=== PATIENT | female | born 1955 | race American Indian/Alaskan Native ===

== ENCOUNTER → 2018-01-18 | Day surgery (SDC) | payer OTHER ==
--- NOTE | 2018-01-24 11:49 | PATH ---
Surgical Pathology Report Patient Name: MANUELA STOUT [facility]. Rec. #: [id number] /Age/Gender: 1955 (Age: 62) / F Account: [id number] Location: [facility] Taken: 01/18/2018 Received: 01/18/2018 Reported: 01/23/2018 Physicians: Talya Coburn M.D. Specimen(s) Received RIGHT BREAST CORE BIOPSY Clinical History Ultrasound findings: Highly suspicious/malignant Final Diagnosis BREAST, RIGHT, 7:00, 4 CM FN, CORE BIOPSY: INVASIVE DUCTAL CARCINOMA, WELL TO MODERATELY DIFFERENTIATED, MEASURING ATLEAST 2 MM IN THIS MATERIAL. Comment: Immunohistochemical stains performed and interpreted at [facility] show myoepithelial markers: p63 and Smooth muscle myosin- heavy chain (SMM-HC), are negative. E-Cadherin is positive, supportive of ductal phenotype. Results of Estrogen Receptor (ER) and Progesterone Receptor (TN) studies performed at [facility] are as follows: ER (clone [id number] mouse monoclonal antibody by [employer]): 90% nuclear staining with strong intensity (Positive). TN (clone16 mouse monoclonal antibody by [employer]ica): 60% nuclear staining with moderate intensity (Positive). Positive and negative controls (internal if applicable) show appropriate results. Formalin fixation and cold ischemic times are within current ASCO/CAP recommendations for ER, TN and Her2 testing. Comment: Results of Her2 (IHC) & Ki-67 studies are pending and will be reported separately. Findings discussed with Oriana (nurse) from Dr. Haines's office. Electronically Signed Leesa Gleason M.D. Addendum Reported: 01/25/2018 Addendum Diagnosis Results of Her2 (IHC) & Ki-67 studies performed on block "A" at [place], [place] ([id number]) are as follows: Her2 IHC (EP3 from [employer], formerly known as [id number], using Pedro Polymer Refine detection kit): 0 (Negative). Ki-67: 5% (Low proliferative index). Positive and negative controls (internal if applicable) show appropriate results. Leesa Laureana [place]-Quoc M.D. Gross Description Received in formalin labeled "right breast biopsy 7:00, 4 cmfn," is a 2.0 x 2.0 x 0.3 cm aggregate of vásquez-yellow, irregular to cylindrical portions of fibroadipose tissue admixed with blood clot. The formalin is filtered and the specimen is entirely submitted in one cassette. Time to formalin fixation: 2 minutes Total formalin fixation time: Approximately 6 hours. 01/18/2018 trey01/18/2018
== END | disposition home or self-care (01) ==
LOC: FRADUS-SUR 11:50
PROVIDERS: ATTEND Obstetrics & Gynecology
PROC: 0HBT3ZX Excision of Right Breast, Percutaneous Approach, Diagnostic (ICD-10-PCS; principal; 2018-01-18)
DX: C50.511 Malignant neoplasm of lower-outer quadrant of right female breast (principal); Z17.0 Estrogen receptor positive status [ER+]; N63.13 Unspecified lump in the right breast, lower outer quadrant
CPT/HCPCS: 19083; 77065-TC; 87899; 88305-TC; 88341-TC; 88342-TC; A4648

== ENCOUNTER 2018-02-26 07:46 | Day surgery (SDC) | payer OTHER ==
[2018-02-11 14:54] VITALS: BMI 37.0
--- NOTE | 2018-02-18 10:20 | HP ---
Admitting History and Physical - Primary Care Physician PCP: Cat Pratt - Admission Chief Complaint: right breast cancer History of Present Illness: Patient is a 62 yo female noted to have a suspicious right breast mass at 7:30 on US. Right US guided core bx was c/w an infiltrating ductal ca ER and AL positive, Her2 negative. MRI done 02/01/2018 was c/w known cancer without evidence of multifocal or contralateral dz. A non suspicious left intramammary LN was noted on MRI which was also noted on US. Patient is now presenting for right breast WE with NL, snbx, lympho, and intraop radiation. History Source: Patient Limitations to Obtaining History: No Limitations - Past Medical History Cardiovascular: Yes: HTN Endocrine: Yes: Other (h/o thyroiditis) - Smoking History Smoking history: Never smoked Have you smoked in the past 12 months: No - Alcohol/Substance Use Hx Alcohol Use: Yes (rare) Home Medications - Allergies Allergies/Adverse Reactions: Allergies Allergy/AdvReac Type Severity Reaction Status Date / Time ramipril [From Altace] AdvReac Cough Verified 02/11/18 15:01 - Home Medications Home Medications: Ambulatory Orders Levothyroxine [Synthroid -] 100 mcg PO DAILY 02/11/18 Losartan Potassium 50 mg PO DAILY 02/11/18 Family Disease History - Family Disease History Family History: Unremarkable Review of Systems - Review of Systems Constitutional: reports: No Symptoms Cardiovascular: reports: No Symptoms Respiratory: reports: No Symptoms Physical Examination Constitutional: Yes: Well Nourished, Calm Breast(s): Yes: Other (Breast are symmetrical and nodular without suspicious masses or adenopathy noted.) Problem List - Problems (1) Breast cancer, right Code(s): C50.911 - MALIGNANT NEOPLASM OF UNSP SITE OF RIGHT FEMALE BREAST Qualifiers: Breast location: lower outer quadrant of breast Estrogen receptor status: positive Patient sex: female Qualified Code(s): C50.511 - Malignant neoplasm of lower-outer quadrant of right female breast; Z17.0 - Estrogen receptor positive status [ER+] Assessment/Plan Plan: Right breast wide excision with NL, snbx, lympho, poss ANDx, with intraop radiation.
[2018-02-26] MEDS ORDERED: PROPOFOL 20 ML ONE (12:41)
[2018-02-26] MEDS ORDERED: ROCURONIUM BROMIDE 50 MG/5 ML VIAL ONE (12:41)
[2018-02-26] MEDS ORDERED: fentaNYL CITRATE 250 MCG/5 ML VIAL ONE (12:41)
[2018-02-26] MEDS ORDERED: MIDAZOLAM HCL 2 MG/2 ML SINGLE DOSE VIAL ONE (12:41)
[2018-02-26] MEDS ORDERED: LIDOCAINE HCL 1%, 10 MG/ML (20ML VIAL) ONE (13:01)
[2018-02-26] MEDS ORDERED: ISOSULFAN BLUE 10 MG/ML VIAL SQ ONE (13:01)
[2018-02-26] MEDS ORDERED: BUPIVACAINE HCL/PF 2.5 MG/ML - 30 ML VIAL IJ ONE (13:01)
[2018-02-26] MEDS ORDERED: ONDANSETRON 4 MG/2 ML VIAL ONE ×3 (14:15→17:19)
[2018-02-26] MEDS ORDERED: DEXAMETHASONE SOD PHOSPHATE 4 MG/1 ML VIAL ONE (14:15)
[2018-02-26] MEDS ORDERED: ceFAZolin SODIUM 1 GM VIAL ONE (14:18)
[2018-02-26] MEDS ORDERED: KETOROLAC TROMETHAMINE 30 MG/1 ML VIAL IVPUSH PRN (15:11)
[2018-02-26] MEDS ORDERED: ONDANSETRON 4 MG/2 ML VIAL IVPUSH PRN ×2 (15:11→17:06)
[2018-02-26] MEDS ORDERED: DEXTROSE 5%-0.45% SALINE 1,000 ML IV SCH (15:15)
[2018-02-26] MEDS ORDERED: NEOSTIGMINE METHYLSULFATE 0.5 MG/ML - 10 ML MDV ONE (15:57)
[2018-02-26] MEDS ORDERED: GLYCOPYRROLATE 0.2 MG/1 ML VIAL ONE ×2 (16:01→16:04)
[2018-02-26] MEDS ORDERED: GUM MASTIC/STORAX/MSAL/ALCOHOL 1 DRP DROPSBTL MC ONE (16:11)
[2018-02-26] MEDS ORDERED: BUPIVACAINE HCL/PF 0.25% (2.5MG/ML) 10 ML VIAL IJ ONE (16:35)
[2018-02-26] MEDS ORDERED: oxyCODONE HCL 5 MG TABLET PO PRN (17:06)
[2018-02-26] MEDS ORDERED: LACTATED RINGERS SOLUTION 1,000 ML IV SCH (17:15)
[2018-02-26] MEDS ORDERED: ONDANSETRON 4 MG/2 ML VIAL IVPUSH ONE (17:22)
[2018-02-26] MEDS ORDERED: KETOROLAC TROMETHAMINE 30 MG/1 ML VIAL ONE (17:45)
[2018-02-26] MEDS ORDERED: KETOROLAC TROMETHAMINE 30 MG/1 ML VIAL IVPUSH ONE (17:50)
--- NOTE | 2018-02-26 17:58 | OP ---
DATE OF OPERATION: 02/26/2018 PREOPERATIVE DIAGNOSIS: Right breast cancer. POSTOPERATIVE DIAGNOSIS: Right breast cancer. PROCEDURE: Right breast ultrasound-localized wide excision with sentinel node biopsy, complex tissue transfer, and intraoperative radiation. ANESTHESIA: General intubated. ATTENDING SURGEON: Cat Pratt MD [employer] RENTAL CLERK: ABDELRAHMAN Wade ESTIMATED BLOOD LOSS: Minimal. COMPLICATIONS: None. DESCRIPTION OF PROCEDURE: Patient was made aware of the risks and benefits of the procedure and consented. She was placed in a supine position after going to radiology where under ultrasound guidance a wire was placed next to the index lesion. Next, she went to nuclear medicine where a radioactive tracer was injected into her peritumoral breast. She was placed in a supine position, and after general anesthesia was induced, the patient was intubated. Next, 3.0 mL of 1% isosulfan blue were locally infiltrated into the right breast. The operative site was then prepped and draped in usual sterile fashion, waiting approximately 10 minutes with gentle manual compression. A curvilinear incision was made in the right axilla. Using blunt and sharp dissection, tissues were dissected down to the axillary fat where 3 blue and hot lymph nodes were identified. These were surgically excised and submitted for permanent sectioning. Palpation of the rest of the axilla revealed no suspicious nodes or hot spots. The wound was then closed with deep 3-0 Vicryl, followed by a running subcuticular 4-0 Monocryl. The breast was then approached. A curvilinear incision was made next to the wire using electrocautery. Thick skin flaps were made, and the needle was withdrawn to the puncture site and wire to the wound. Tissues around the wire were then sharply excised and submitted with a short suture superior, long suture lateral. Specimen radiograph confirmed the presence of the index lesion. Additional segments were taken superior, inferior, medial, lateral, deep, and anterior with clips at the new margin. The wound was copiously irrigated with normal saline. Hemostasis maintained by electrocautery. A 4.5-cm probe was then placed into the cavity, and the was cinched to the probe with a pursestring suture of number 1 Vicryl. Intraoperative ultrasound showed the distances from the skin to the probe were greater than 1 cm. Using saline-soaked gauze, surrounding the probe neck, the skin was protected. Towels and radiopaque material were then placed over the breast, and the patient then underwent 37 minutes of intraoperative radiotherapy. Thereafter, the probe and suture were removed. Using electrocautery, tissue flaps were made by taking the breast tissue off the pectoralis muscle 6-8 cm in each direction and rotating into the cavity. This was then closed with multiple layers of [id number] suture of 2-0 Vicryl. Skin was then closed with deep 3-0 Vicryl, followed by a running subcuticular 4-0 Monocryl. Steri-Strips, sterile bandage, and a compression bra were then applied, and the patient, having tolerated the procedure well, was transferred to the recovery room in excellent condition. Talya [id number]
[2018-02-26 19:15] VITALS: TEMP 97.9
[2018-02-26 19:17] VITALS: BP 144/76; PULSE 78
--- NOTE | 2018-02-26 21:44 | OP ---
DATE OF OPERATION: 02/26/2018 PREOPERATIVE DIAGNOSIS: Right breast cancer. POSTOPERATIVE DIAGNOSIS: Right breast cancer. PROCEDURE: Post lumpectomy intraoperative radiation therapy for right breast cancer. ATTENDING SURGEON: Cat Pratt MD CAP SIZER/RADIATION ONCOLOGY: Madalyn Pizarro MD ANESTHESIA: General. COMPLICATIONS: None. INDICATIONS: The patient is a 62-year-old woman with a clinical stage 1A invasive ductal carcinoma of the right breast who elected breast conservation therapy and agreed to have intraoperative radiation therapy on the TARGET-US study. PROCEDURE: Dr. Cat Pratt performed a right lumpectomy and sentinel lymph node biopsy, which he has dictated. After excision of additional margins, the lumpectomy cavity was prepared and sized with a 4.5-cm diameter spherical applicator that was placed into the lumpectomy cavity. The surrounding breast tissue was cinched around the applicator with a Vicryl pursestring suture. I performed a clinical and ultrasound simulation to ensure that the applicator was located within the operative bed with close apposition of the surrounding breast tissue to the surface of the applicator. Ultrasound measurements confirmed a minimum distance of 1.5 cm between the applicator and skin. An adequate distance was ensured by placement of saline-soaked gauze between the skin and breast tissue and retracting the applicator off the chest wall. Shielding material was placed over the breast to reduce scattered radiation. The patient received a total dose of 20 Gy prescribed to 0 mm from the applicator surface using 50 Kv x-rays from the INTRABEAM system. Prior to treatment, the system was double by our physicist using appropriate quality control clerk measures. The total time required for the treatment was 37 minutes 6 seconds at a dose rate of 0.541 Gy per minute. When the treatment was completed, survey of the patient and room confirmed that the INTRABEAM source was off. There were no complications or unplanned interruptions. Dr. Pratt's team removed the radiation applicator from the patient and completed the surgery. DISPOSITION: The patient will be discharged to the recovery room following surgery. MADALYN PIZARRO M.D. [id number] cc: Cat Pratt MD [facility]
--- NOTE | 2018-03-04 12:47 | PATH ---
Surgical Pathology Report Patient Name: MANUELA STOUT [facility]. Rec. #: [id number] /Age/Gender: 1955 (Age: 62) / F Account: [id number] Location: [facility] Taken: 02/26/2018 Received: 02/26/2018 Reported: 03/04/2018 Physicians: Cat Pratt M.D. Specimen(s) Received A: RIGHT AXILLARY SENTINEL NODES B: RIGHT BREAST INFERIOR MARGIN C: RIGHT BREAST POSTERIOR MARGIN D: RIGHT BREAST ANTERIOR MARGIN E: RIGHT BREAST MEDIAL MARGIN F: RIGHT BREAST LATERAL MARGIN G: RIGHT BREAST SUPERIOR MARGIN H: RIGHT BREAST WIDE EXCISION Clinical History Invasive Ca Final Diagnosis A. lymph nodes, right axillary sentinel, excision: Three lymph nodes, negative for metastatic carcinoma (0/3). B. breast, right, inferior margin, excision: Benign breast tissue. C. breast, right, posterior margin, excision: Benign breast tissue. D. breast, right, anterior margin, excision: Benign breast tissue. E. breast, right, medial margin, excision: Benign breast tissue showing proliferative fibrocystic changes including usual ductal hyperplasia (UDH). F. breast, right, lateral margin, excision: Benign breast tissue showing small fibroadenoma. G. breast, right, superior margin, excision: Benign breast tissue. H. breast, right, wide excision: Invasive tubulolobular carcinoma, well differentiated (tubule score: 2/3, nuclear grade: 2/3, mitotic score: 1/3, total score: 5/9; Venus grade 1). (See note) Invasive carcinoma measures 1.7 cm in GREATEST dimension, microscopically. Ductal carcinoma in situ (DCIS), micropapillary and flat type, intermediate nuclear grade, present admixed with invasive carcinoma. Invasive carcinoma is close to (< 1 mm) the anterior margin. see specimens B-G FOR final margins. no lymphovascular invasion is identified. Remaining breast tissue shows Lobular carcinoma in situ (LCIS, classical type), flat, epithelial atypia (fea) and fibrocystic changes. (See note). Prior biopsy site changes are present. Pathologic stage (pTNM): pT1c pN0. see ALSO invasive carcinoma Case summary below. Note: E-Cadherin immunostains (performed at [facility]) demonstrate membranous positivity in both tubular and lobular appearing components, consistent with ductal phenotype. The foci of LCIS are negative for E-Cadherin. These findings support the diagnosis. Comments Breast Invasive Carcinoma: Surgical Pathology Case Summary (Based on AJCC TNM 8 th edition) Procedure _X_ Excision (less than total mastectomy) Specimen Laterality _X_ Right Tumor Size _X_ Greatest dimension of largest invasive focus >1 mm (millimeters): 17 mm Histologic Type _X_ Invasive tubulolobular carcinoma Histologic Grade (Venus Histologic Score) Glandular (Acinar)/Tubular Differentiation _X_ Score 2 (10% to 75% of tumor area forming glandular/tubular structures) Nuclear Pleomorphism _X_ Score 2 Mitotic Rate _X_ Score 1 Overall Grade _X_ Grade 1 (scores of 3, 4, or 5) Tumor Focality _X_ Single focus of invasive carcinoma Ductal Carcinoma In Situ (DCIS) _X_ DCIS is present in specimen _X_ Negative for extensive intraductal component (EIC) Margins Invasive Carcinoma Margins _X_ Uninvolved by invasive carcinoma Distance from closest margin (millimeters): > 1 mm from anterior margin in wide excision H. Final anterior margin is negative for carcinoma. DCIS Margins _X_ Uninvolved by DCIS Distance from closest margin (millimeters): 7 mm from anterior margin in wide excision H. Final anterior margin is negative for DCIS. Regional Lymph Nodes Number of Lymph Nodes with Macrometastases (>2 mm): 0 Number of Lymph Nodes with Micrometastases (>0.2 mm to 2 mm and/or >200 cells): 0 Number of Lymph Nodes with Isolated Tumor Cells (=0.2 mm and =200 cells): 0 Number of Lymph Nodes Examined:3 Number of Aurora Nodes Examined : 3 Treatment Effect _X_ No known presurgical therapy Lymphovascular Invasion _X_ Not identified Pathologic Stage Classification (pTNM, AJCC 8th Edition) Primary Tumor (Invasive Carcinoma) (pT) _X_ pT1c: Tumor >10 mm but =20 mm in greatest dimension Regional Lymph Nodes (pN) Category (pN) _X_ pN0 (sn): No regional lymph node metastasis identified or ITCs only Biomarker Studies Results of ER and FL studies performed on prior biopsy ([id number]) at [facility] are as follows: ER (clone [id number] mouse monoclonal antibody by [employer]): 90 % nuclear staining with strong intensity (Positive). FL (clone16 mouse monoclonal antibody by [employer]) : 60 % nuclear staining with moderate to strong intensity (Positive). Results of Her2 (IHC) & Ki-67 studies performed on prior biopsy ([id number]) at [place], [place] ([id number]) are as follows: Her2 IHC (EP3 from [employer], formerly known as [id number], using Pedro Polymer Refine detection kit): 0 (Negative). Ki67: 5% (low proliferative index). Electronically Signed Emily Saenz M.D. Gross Description A. Received in formalin labeled "right axillary sentinel nodes," are 3 vásquez, irregular lymph nodes with attached fat ranging from 1.0-2.3 cm in greatest dimension. The specimens are entirely submitted in 4 cassettes as follows: 1-one bisected lymph node; 2-one bisected lymph node; 3-4-one bisected lymph node. B. Received in formalin labeled "right breast inferior margin," is a 1.9 x 0.9 x 0.4 cm portion of fibroadipose tissue with a clip at the new margin, per the surgeon. The new margin is inked blue and the specimen is serially sectioned. The specimen is entirely submitted in 3 cassettes. C. Received in formalin labeled "right breast posterior margin," is a 2.6 x 2.3 x 0.8 cm portion of fibroadipose tissue with a clip at the new margin, per the surgeon. The new margin is inked blue and the specimen is serially sectioned. The specimen is entirely and sequentially submitted in 4 cassettes. D. Received in formalin labeled "right breast anterior margin," is a 3.4 x 1.7 x 0.8 cm portion of fibroadipose tissue with a clip at the new margin, per the surgeon. The new margin is inked blue and the specimen is serially sectioned. The specimen is entirely and sequentially submitted in 4 cassettes. E. Received in formalin labeled "right breast medial margin," is a 2.0 x 1.1 x 0.4 cm portion of fibroadipose tissue with a clip at the new margin, per the surgeon. The new margin is inked blue and the specimen is serially sectioned. The specimen is entirely submitted in 3 cassettes. F. Received in formalin labeled "right breast lateral margin," is a 2.0 x 1.3 x 0.5 cm portion of fibroadipose tissue with a clip at the new margin, per the surgeon. The new margin is inked blue and the specimen is serially sectioned. The specimen is entirely submitted in 2 cassettes. G. Received in formalin labeled "right breast superior margin," is a 3.0 x 1.5 x 0.6 cm portion of fibroadipose tissue with a clip at the new margin, per the surgeon. The new margin is inked blue and the specimen is serially sectioned. The specimen is entirely submitted in 3 cassettes. H. Received in formalin, labeled "right breast wide excision," is a 4.3 x 2.8 x 2.0 cm. vásquez-yellow, irregular, portion of fibroadipose tissue with a needle localization wire present. There is a short suture marking the superior aspect and a long suture marking the lateral aspect, per the surgeon. There is no skin present. The specimen is inked as follows: superior and lateral blue; inferior green; medial yellow; anterior red; deep black. The specimen is serially sectioned from lateral to medial. Sectioning reveals a 1.3 x 1.1 x 1.0 cm vásquez, firm, ill-defined mass abutting the anterior margin. There is a forbes metallic biopsy clip identified within the mass. The mass is 0.4 cm from the deep margin and 0.5 cm from the inferior margin. The specimen is entirely and sequentially submitted in 8 cassettes with the lateral margin in cassette 1, the medial margin in cassette 8 and the mass in cassettes 3-7. Time to formalin fixation: 15 minutes Total formalin fixation time: Approximately 27 hours. 02/27/2018 trey02/27/2018
== END 2018-02-26 19:25 | disposition home or self-care (01) ==
LOC: FASU 07:46
PROVIDERS: ATTEND Surgery Surgical Oncology
PROC: 0HBT0ZZ Excision of Right Breast, Open Approach (ICD-10-PCS; principal; 2018-02-26 13:00)
PROC: DMY17ZZ Contact Radiation of Right Breast (ICD-10-PCS; 2018-02-26 13:00)
DX: C50.511 Malignant neoplasm of lower-outer quadrant of right female breast (principal); Z17.0 Estrogen receptor positive status [ER+]; N60.81 Other benign mammary dysplasias of right breast; I10 Essential (primary) hypertension
CPT/HCPCS: 19281; 76641-TC-50; 77290; 77300; 77316; 77332; 77370-TC; 77424; 78195-TC; 88307-TC; 88341-TC; 88342-TC; 94760; A9541; C9726